=== PATIENT | male | born 1940 | race Caucasian/White ===

== ENCOUNTER 2019-12-02 05:55 | Outpatient (CLI) | payer MEDICARE ==
[~2019-12-02] VITALS: Ht 170.2 cm; Wt 61.7 kg
[2019-12-02 06:56] VITALS: BP 147/89
[2019-12-02] MEDS ORDERED: ASPI-496 PO (07:12)
[2019-12-02] MEDS ORDERED: ROSU40TA PO (07:18)
[2019-12-02] MEDS ORDERED: AMIT25TA PO (07:18)
[2019-12-02] MEDS ORDERED: PROPOFOL 10 MG/ML, 20ML ONE ×2 (07:18)
[2019-12-02] MEDS ORDERED: VIT D3 PO (07:18)
[2019-12-02] MEDS ORDERED: FENTANYL PF 100 MCG/2ML ONE (07:18)
[2019-12-02] MEDS ORDERED: LIDOCAINE-MPF 2% ,5ML ONE (07:18)
[2019-12-02] MEDS ORDERED: DILT120T3 PO (07:18)
[2019-12-02] MEDS ORDERED: LACTATED RINGERS 1,000 ML IV SCH (07:42)
== END 2019-12-02 08:25 | disposition home or self-care (01) ==
LOC: OUT 05:55 → EDSTATUS 07:30 → OUT 08:25
PROVIDERS: ATTEND Internal Medicine Gastroenterology
DX: R13.10 Dysphagia, unspecified (principal); Z53.8 Procedure and treatment not carried out for other reasons; I10 Essential (primary) hypertension; G47.30 Sleep apnea, unspecified; Z79.82 Long term (current) use of aspirin; Z79.899 Other long term (current) drug therapy; Z72.89 Other problems related to lifestyle; Z87.891 Personal history of nicotine dependence; Z91.041 Radiographic dye allergy status; Z98.890 Other specified postprocedural states
CPT/HCPCS: 93005; J2704; J3010

== ENCOUNTER 2019-12-04 07:34 | Day surgery (SDC) | payer MEDICARE ==
[~2019-12-04] VITALS: Ht 170.2 cm; Wt 61.8 kg
[~2019-12-04 07:34] MED LIST: AMIT25TA PO; ASPI-496 PO; DILT120T3 PO; ROSU40TA PO; VIT D3 PO
[2019-12-04 08:04] VITALS: BP 100/78
[2019-12-04] MEDS ORDERED: LIDOCAINE-MPF 1%, 2ML ONE (08:04)
[2019-12-04 08:10] VITALS: BP 100/78
[2019-12-04] MEDS ORDERED: PROPOFOL 50 ML ONE (08:21)
[2019-12-04] MEDS ORDERED: LACTATED RINGERS 1,000 ML IV SCH (09:15)
[2019-12-04] MEDS ORDERED: LIDOCAINE-MPF 1%, 2ML INFIL ONE (09:30)
[2019-12-04] MEDS ORDERED: CEFAZOLIN 1,000 MG ONE (09:42)
[2019-12-04] MEDS ORDERED: ACETAMINOPHEN 650 MG/20.3 ML UDC ONE ×2 (12:48→15:49)
[2019-12-04] MEDS ORDERED: ACETAMINOPHEN 325 MG TABLET PEG PRN (13:00)
[2019-12-04] MEDS ORDERED: ACETAMINOPHEN 650 MG/20.3 ML UDC PEG PRN (13:02)
[2019-12-04] MEDS ORDERED: ACETAMINOPHEN 650 MG/20.3 ML UDC PO ONE (16:00)
== END 2019-12-04 16:35 | disposition home or self-care (01) ==
LOC: OUT 07:34
PROVIDERS: ATTEND Internal Medicine
DX: R13.12 Dysphagia, oropharyngeal phase (principal); G12.21 Amyotrophic lateral sclerosis; S03.00XA Dislocation of jaw, unspecified side, initial encounter; I10 Essential (primary) hypertension; Z79.82 Long term (current) use of aspirin; Z79.899 Other long term (current) drug therapy; Z98.890 Other specified postprocedural states; X58.XXXA Exposure to other specified factors, initial encounter; Y93.89 Activity, other specified; Y92.89 Other specified places as the place of occurrence of the external cause; Y99.8 Other external cause status
CPT/HCPCS: 21480; 43246; 70486; B4087; J0690; J2704